=== PATIENT | male | born 1990 | race Caucasian/White ===

== ENCOUNTER 2021-07-11 08:04 | Emergency (ER) | payer OTHER ==
[2021-07-11 09:49] LABS: HEMOGLOBIN 15.3 gm/dl (14.0-17.5); RED BLOOD COUNT 4.79 M/UL (4.20-5.50); WHITE BLOOD COUNT 8.9 K/UL (4.5-11.0)
[2021-07-11 10:09] LABS: BUN/CREATININE RATIO 15 (0-10)
[2021-07-11] MEDS ORDERED: NAPROXEN500 MG PO (11:13)
== END 2021-07-11 11:30 | disposition home or self-care (01) ==
LOC: ER1 08:04
PROVIDERS: Physician Assistant Medical
DX: M25.522 Pain in left elbow (principal); X58.XXXA Exposure to other specified factors, initial encounter
CPT/HCPCS: 73080; 80053; 82550; 82553; 83874; 84484; 85025; 93005; 96374; 99284; J1885